=== PATIENT | female | born 1985 | race American Indian/Alaskan Native ===

== ENCOUNTER 2017-05-22 15:16 | Emergency (ER) | payer MEDICAID ==
[2017-05-22 16:11] VITALS: BP 126/69
--- NOTE | 2017-05-22 20:55 | Emergency Department Report ---
ED General Adult HPI - General Chief complaint: Dizziness Stated complaint: VERTIGO/WELCH Time Seen by Provider: 05/22/17 17:50 Source: patient Mode of arrival: Ambulatory Limitations: No Limitations - History of Present Illness Initial comments: This is a 31-year-old female who was previously unknown to this provider. She does not have a local primary care doctor. She presents to the ER with weeks to months to a year of multiple nonspecific neurologic symptoms, including facial twitching, binocular blurry vision, and nonspecific sensory changes in upper and lower extremities. She reports that the symptoms are intermittent, they do not have exacerbating or relieving factors, she denies headache, neck pain, chest pain, abdominal pain, shortness of breath, irritative and obstructive urinary symptoms, reports that she is not . -: Gradual, week(s), month(s) Location: eyes, left, right, upper extremity, lower extremity Consistency: intermittent Improves with: none Worsens with: none Associated Symptoms: weakness - Related Data Allergies Allergy/AdvReac Type Severity Reaction Status Date / Time No Known Allergies Allergy Verified 05/22/17 16:02 ED Review of Systems ROS: Stated complaint: VERTIGO/WELCH Other details as noted in HPI Constitutional: denies: fever Eyes: vision change ENT: denies: epistaxis Respiratory: denies: cough Cardiovascular: denies: chest pain Gastrointestinal: denies: nausea Genitourinary: as per HPI Musculoskeletal: arthralgia, myalgia Neurological: numbness, paresthesias Psychiatric: anxiety ED Past Medical Hx - Past Medical History Previous Medical History?: Yes Additional medical history: polycystic kidney disease - Surgical History Past Surgical History?: Yes Additional Surgical History: 1 kidney from poly cystic disease - Social History Smoking Status: Never Smoker Substance Use Type: Alcohol ED Physical Exam - General Limitations: No Limitations General appearance: alert, in no apparent distress - Head Head exam: Present: atraumatic, normocephalic - Eye Eye exam: Present: normal appearance, PERRL, EOMI, other (Extraocular movements intact. Tongue midline. No facial droop. Facial sensation intact to light touch in the V1, V2, V3 distribution bilaterally. 5 and 5 strength in 4 extremities.. Sensation is intact to light touch in 4 extremities.). Absent: nystagmus - ENT ENT exam: Present: normal exam, normal orophraynx, mucous membranes moist, TM's normal bilaterally, normal external ear exam, other (there is no mastoid tenderness) - Neck Neck exam: Present: normal inspection, full ROM. Absent: tenderness, meningismus - Respiratory Respiratory exam: Present: normal lung sounds bilaterally. Absent: respiratory distress, wheezes, rales, chest wall tenderness, accessory muscle use, decreased breath sounds, prolonged expiratory - Cardiovascular Cardiovascular Exam: Present: regular rate, normal rhythm, normal heart sounds. Absent: bradycardia, tachycardia, irregular rhythm, systolic murmur, diastolic murmur, rubs, gallop - GI/Abdominal GI/Abdominal exam: Present: soft, normal bowel sounds. Absent: distended, tenderness, guarding, rebound, rigid, pulsatile mass - Extremities Exam Extremities exam: Present: normal inspection, full ROM, normal capillary refill. Absent: pedal edema, joint swelling, calf tenderness - Back Exam Back exam: Present: normal inspection, full ROM. Absent: tenderness, CVA tenderness (R), CVA tenderness (L), muscle spasm, paraspinal tenderness, vertebral tenderness - Neurological Exam Neurological exam: Present: alert, oriented X3, normal gait (Extraocular movements intact. Tongue midline. No facial droop. Facial sensation intact to light touch in the V1, V2, V3 distribution bilaterally. 5 and 5 strength in 4 extremities.. Sensation is intact to light touch in 4 extremities.), other ( normal [id number]. Negative pronator drift. There is no pass pointing.). Absent: motor sensory deficit - Psychiatric Psychiatric exam: Present: normal affect, normal mood - Skin Skin exam: Present: warm, dry, intact, normal color. Absent: rash ED Course Vital Signs 05/22/17 16:03 Temperature 98.3 F Pulse Rate 68 Blood Pressure 126/69 ED Medical Decision Making - Lab Data Vital Signs 05/22/17 16:03 Temperature 98.3 F Pulse Rate 68 Blood Pressure 126/69 Vital Signs 05/22/17 16:03 Temperature 98.3 F Pulse Rate 68 Blood Pressure 126/69 Lab Results 05/22/17 Range/Units 16:24 POC Glucose 82 (70-105) - Medical Decision Making Differential diagnosis: Multiple sclerosis, peripheral neuropathy, conversion disorder, fibromyalgia Assessment and plan: 31-year-old female with multiple nonspecific neurologic complaints, for weeks to months to over a year. She is afebrile, with reassuring vital signs, respiratory rate 14-16, saturating 98% on room air, GCS of 15, NIH score of 0, clinically sober at this time, and walking with a steady gait. Extensive discussion had with the patient. Recommended follow-up with outpatient neurologist. To expedite the patient's workup, I did offer to obtain laboratory studies and CT scan of the brain, which she declined out of concern for radiation. She is reliable, she states she will follow-up, I think this plan of care is reasonable, she'll be discharged at this time, return precautions are reviewed, does not appear to be any emergent condition at this time. Critical care attestation.: If time is entered above; I have spent that time in minutes in the direct care of this critically ill patient, excluding procedure time. ED Disposition Clinical Impression: Dysesthesia of multiple sites Disposition: DC-01 TO HOME OR SELFCARE Is pt being admited?: No Does the pt Need Aspirin: No Condition: Stable Additional Instructions: Follow up with any of the listed neurology specialist within the next week. Return to the ER right away with fevers, chills, chest pain, shortness of breath , intractable nausea or vomiting, confusion, inability to tolerate liquid feeds , focal extremity weakness/numbness/unsteady gait, confusion, loss of consciousness. Referrals: DORIE HOOKER MD [Primary Care Provider] - 3-5 Days RICHARD SANTANA MD [Referring] - 3-5 Days MARIAELENA GILLIAM MD [Staff Physician] - 3-5 Days BHARAT PARTIDA MD [Staff Physician] - 3-5 Days JERO LOVELL MD [Staff Physician] - 3-5 Days
== END 2017-05-22 21:00 | disposition home or self-care (01) ==
LOC: ED 15:16
DX: R20.8 Other disturbances of skin sensation (principal)
CPT/HCPCS: 82962; 99282

== ENCOUNTER 2021-07-21 12:05 | Emergency (ER) | payer MEDICAID ==
[2021-07-21 12:20] VITALS: BP 117/63
[2021-07-21] MEDS ORDERED: SODIUM CHLORIDE 0.9% 1000 ML 1,000 ML IV ONE (12:48)
[2021-07-21] MEDS ORDERED: KETOROLAC 30 MG/1 ML INJ IV ONE (12:48)
[2021-07-21] MEDS ORDERED: ONDANSETRON 4 MG/2 ML INJ IV ONE (12:48)
[2021-07-21] MEDS ORDERED: FAMOTIDINE 20 MG TAB PO ONE (12:49)
--- NOTE | 2021-07-21 12:49 | Emergency Department Report ---
ED General Adult HPI - General Chief complaint: Abdominal Pain Stated complaint: RIGHT SIDE PAIN (1 KIDNEY) Time Seen by Provider: 07/21/21 12:47 Source: patient Mode of arrival: Ambulatory Limitations: No Limitations - History of Present Illness MD Complaint: Generaliuzed weakness/fatigue/upper abd pain -: Gradual, week(s) (1) Severity scale (0 -10): 10 - Related Data Allergies Allergy/AdvReac Type Severity Reaction Status Date / Time No Known Allergies Allergy Verified 07/21/21 12:16 ED Review of Systems ROS: Stated complaint: RIGHT SIDE PAIN (1 KIDNEY) Other details as noted in HPI ED Past Medical Hx - Past Medical History Additional medical history: polycystic kidney disease - Surgical History Additional Surgical History: 1 kidney from poly cystic disease - Social History Smoking Status: Never Smoker Substance Use Type: Alcohol ED Physical Exam - General Limitations: No Limitations ED Course Vital Signs 07/21/21 12:19 Temperature 97.5 F L Pulse Rate 79 Respiratory 20 Rate Blood Pressure 117/63 [Right] O2 Sat by Pulse 100 Oximetry Critical care attestation.: If time is entered above; I have spent that time in minutes in the direct care of this critically ill patient, excluding procedure time. ED Disposition Condition: Stable Instructions: Abdominal Pain (ED)
--- NOTE | 2021-07-21 13:04 | Emergency Department Report ---
ED Abdominal Pain HPI - General Chief Complaint: Abdominal Pain Stated Complaint: RIGHT SIDE PAIN (1 KIDNEY) Time Seen by Provider: 07/21/21 12:47 Source: patient Mode of arrival: Ambulatory Limitations: No Limitations - History of Present Illness Initial Comments: 35 yo comes to er with 2 complaints 1. right elbow pain no trauma for months when educated about pcp evaluation she stated "well I have to work" she has been educated on otc symptom relief in her mind this is related to her having 1 kidney and her 2nd complaint 2. constipation so bad "that my thought I was working out" she states she has to push her abd to have bm no n/v/d no fever or chills pt does not have pcp She is ambulatory and in nad on arrival to ER. MD Complaint: abdominal pain -: Gradual, days(s) Severity scale (0 -10): 10 Associated Symptoms: denies other symptoms - Related Data Allergies Allergy/AdvReac Type Severity Reaction Status Date / Time No Known Allergies Allergy Verified 07/21/21 12:16 ED Review of Systems ROS: Stated complaint: RIGHT SIDE PAIN (1 KIDNEY) Other details as noted in HPI Comment: All other systems reviewed and negative ED Past Medical Hx - Past Medical History Previous Medical History?: Yes Additional medical history: polycystic kidney disease - she thinks; l kidney removed as child - Surgical History Past Surgical History?: Yes Additional Surgical History: 1 kidney from poly cystic disease - Family History Family history: other (mom dec aids; father a/w) - Social History Smoking Status: Never Smoker Substance Use Type: Alcohol ED Physical Exam - General Limitations: No Limitations General appearance: alert, in no apparent distress - Head Head exam: Present: atraumatic, normocephalic - Eye Eye exam: Present: normal appearance - ENT ENT exam: Present: mucous membranes moist - Neck Neck exam: Present: normal inspection - Respiratory Respiratory exam: Present: normal lung sounds bilaterally. Absent: respiratory distress - Cardiovascular Cardiovascular Exam: Present: regular rate, normal rhythm. Absent: systolic murmur, diastolic murmur, rubs, gallop - GI/Abdominal GI/Abdominal exam: Present: soft, normal bowel sounds - Extremities Exam Extremities exam: Present: normal inspection - Back Exam Back exam: Present: normal inspection - Neurological Exam Neurological exam: Present: alert, oriented X3 - Psychiatric Psychiatric exam: Present: normal affect, normal mood - Skin Skin exam: Present: warm, dry, intact, normal color. Absent: rash ED Course Vital Signs 07/21/21 12:19 Temperature 97.5 F L Pulse Rate 79 Respiratory 20 Rate Blood Pressure 117/63 [Right] O2 Sat by Pulse 100 Oximetry ED Medical Decision Making - Lab Data Result diagrams: 07/21/21 13:25 07/21/21 13:25 - Radiology Data Radiology results: report reviewed, image reviewed - Medical Decision Making Labs 07/21/21 07/21/21 07/21/21 13:25 13:25 13:25 WBC 5.6 RBC 3.95 Hgb 9.4 L Hct 30.7 MCV 78 L MCH 24 L MCHC 31 RDW 17.2 H Plt Count 244 Lymph % (Auto) 29.9 Alexander % (Auto) 6.1 Eos % (Auto) 1.0 Baso % (Auto) 0.6 Lymph # (Auto) 1.7 Alexander # (Auto) 0.3 Eos # (Auto) 0.1 Baso # (Auto) 0.0 Seg Neutrophils % 62.4 Seg Neutrophils # 3.5 Sodium 139 Potassium 3.9 Chloride 102.7 Carbon Dioxide 23 Anion Gap 17 BUN 10 Creatinine 0.7 Estimated GFR > 60 BUN/Creatinine Ratio 14 Glucose 86 Calcium 9.2 Total Bilirubin 0.30 Direct Bilirubin < 0.2 Indirect Bilirubin 0.1 AST 12 ALT 15 Alkaline Phosphatase 61 Total Protein 7.4 Albumin 3.8 L Albumin/Globulin Ratio 1.1 Lipase 15 HCG, Qual Negative Vital Signs 07/21/21 12:19 Temperature 97.5 F L Pulse Rate 79 Respiratory 20 Rate Blood Pressure 117/63 [Right] O2 Sat by Pulse 100 Oximetry labs noted kub noted pt given mg citrate and instructed to take suppository or enema this evening she has been educated on high fiber diet and stay ing well hydrated pt educated on her concerns for r elbow pain- chronic- she has no trauma; she will have to see pcp for further eval for her concerns of SLE etc dc home with dc plan of care including diet, activity, meds and follow up. She verbalizes understanding. - Differential Diagnosis constipation Critical care attestation.: If time is entered above; I have spent that time in minutes in the direct care of this critically ill patient, excluding procedure time. ED Disposition Clinical Impression: Abdominal pain, Constipation, Elbow pain Disposition: 01 HOME / SELF CARE / HOMELESS Is pt being admited?: No Does the pt Need Aspirin: No Condition: Stable Instructions: Constipation, Adult, Abdominal Pain (ED) Additional Instructions: OVER THE COUNTER DULCOLOX SUPPOSITORY OR FLEET ENEMA TONIGHT THIS WILL HELP WITH MED GIVEN IN ER TO MOVE YOUR BOWEL ALL LABS NORMAL FOLLOW UP WITH PCP- REFERRAL BELOW-- FOR NON ER RELATED WORK UP OF YOUR ELBOW PAIN CONTINUE OTC MOTRIN OR TYLENOL FOR PAIN UNTIL THEN STAY WELL HYDRATED WITH WATER HIGH FIBER DIET Referrals: PRIMARY CAREMD [Primary Care Provider] - 3-5 Days JEFFREY BOYD MD [Staff Physician] - 3-5 Days Time of Disposition: 13:04
[2021-07-21 13:51] LABS: Basophils % (Auto) 0.6 % (0.0-1.8); Eosinophils # (Auto) 0.1 K/mm3 (0.0-0.4); Hematocrit 30.7 % (30.3-42.9); Hemoglobin 9.4 gm/dl (10.1-14.3); Lymphocytes # (Auto) 1.7 K/mm3 (1.2-5.4); Lymphocytes % (Auto) 29.9 % (13.4-35.0); Mean Corpuscular HGB Conc 31 % (30-34); Mean Corpuscular Volume 78 fl (79-97); Monocytes # (Auto) 0.3 K/mm3 (0.0-0.8); Monocytes % (Auto) 6.1 % (0.0-7.3); Platelet Count 244 K/mm3 (140-440); Red Blood Count 3.95 M/mm3 (3.65-5.03); Red Cell Distribution Width 17.2 % (13.2-15.2)
[2021-07-21 14:14] LABS: Alanine Aminotransferase 15 units/L (7-56); Albumin 3.8 g/dL (3.9-5); BUN/Creatinine Ratio 14; Bilirubin,Direct < 0.2 mg/dL (0-0.2); Blood Urea Nitrogen 10 mg/dL (7-17); Calcium 9.2 mg/dL (8.4-10.2); Hemolysis Index 1
[2021-07-21] MEDS ORDERED: MAGNESIUM CITRATE 300 ML ORAL LIQD PO ONE (14:17)
--- NOTE | 2021-07-21 14:41 | XRay Report ---
ABDOMEN 1 VIEW INDICATION / CLINICAL INFORMATION: Unspecified abdominal pain. COMPARISON: None available. FINDINGS: TUBES / LINES: None. BOWEL GAS PATTERN: No significant abnormality. FREE AIR / EXTRALUMINAL GAS: None seen. ADDITIONAL FINDINGS: No significant additional findings. IMPRESSION: 1. No significant abnormality. Signer Name: Mickey Cadena MD Signed: 07/21/2021 2:36 PM Workstation Name: [facility]
== END 2021-07-21 15:15 | disposition home or self-care (01) ==
LOC: ED 12:05
DX: R10.9 Unspecified abdominal pain (principal); K59.00 Constipation, unspecified; M25.521 Pain in right elbow
CPT/HCPCS: 36415; 74018; 80048; 80076; 83690; 84703; 85025; 99283